=== PATIENT | male | born 1965 | race Caucasian/White ===

== ENCOUNTER 2019-04-11 22:52 | Emergency (ER) | payer SELFPAY ==
[~2019-04-11] VITALS: Ht 175.3 cm; Wt 77.1 kg
[2019-04-11 22:55] VITALS: BP 142/78
[2019-04-11] MEDS ORDERED: CEPHALEXIN500 M1 ORAL (22:59)
[2019-04-11 23:00] VITALS: BP 142/78
--- NOTE | 2019-04-11 23:00 | Emergency Room Report ---
History of Present Illness General Chief Complaint: Medical Clearance Source: Patient, Law [employer] Present Illness HPI 54-year-old male brought in by corrections, patient has no complaints, denies any fevers chills chest pain shortness of breath, he states he is good, he has no complaints and wants to leave. Allergies: Coded Allergies: No Known Allergies (Unverified , 04/11/19) Patient History Past Medical History: see triage record Reviewed Nursing Documentation: PMH: Agreed; PSxH: Agreed Nursing Documentation-PMH Past Medical History: No Stated History Review of Systems All Other Systems: negative except mentioned in HPI Physical Exam Vital Signs Date Time Temp Pulse Resp B/P (MAP) Pulse Ox O2 Delivery O2 Flow Rate FiO2 04/11/19 22:53 98.2 74 16 142/78 (99) 97 Room Air Sp02 EP Interpretation: reviewed, normal General Appearance: well appearing, no apparent distress, alert Head: normocephalic, atraumatic Eyes: bilateral eye PERRL, bilateral eye EOMI ENT: uvula midline, moist mucus membranes Neck: supple, thyroid normal, supple/symm/no masses Respiratory: lungs clear, no respiratory distress, no retraction, no accessory muscle use Cardiovascular #1: normal peripheral pulses, regular rate, rhythm, no edema, no gallop, no murmur Gastrointestinal: non tender, soft, no guarding, no rebound Musculoskeletal: normal inspection Neurologic: alert, oriented x3 Psychiatric: mood/affect normal Skin: warm/dry, other - Patient found to have sunburn blisters on his bilateral feet with ulceration no erythema Medical Decision Making Diagnostic Impression: Primary Impression: Blisters of multiple sites ER Course 54-year-old male found to have blisters on his bilateral feet, offered patient antibiotics, patient refused states he wants to leave, patient at this point has no acute medical emergencies, patient states he will follow-up with the present doctors, disposition to corrections Last Vital Signs Date Time Temp Pulse Resp B/P (MAP) Pulse Ox O2 Delivery O2 Flow Rate FiO2 04/11/19 22:53 98.2 74 16 142/78 (99) 97 Room Air Disposition: D/C TO [employer] IN [facility] Condition: Stable Scripts Cephalexin* (CEPHALEXIN*) 500 Mg Tablet 500 MG ORAL EVERY 6 HOURS for 10 Days, #40 CAP Prov: Lauri Coyne MD 04/11/19 Departure Forms: Longterm Clearance Patient Instructions: Blisters Additional Instructions: The patient was provided with discharge instructions, notified to follow-up with a primary care doctor and or specialist in the next 24-48 hours, and to return to the ED if they have worsening of their symptoms. Please note that this report is being documented using DRAGON technology. This can lead to erroneous entry secondary to incorrect interpretation by the dictating instrument. Lauri Coyne MD Apr 11, 2019 23:00
--- NOTE | 2019-04-11 23:00 | NUR ---
ED Nurse Note: Patient margarita [facility] for a medical clearance, at time of arrival patient complains of no pain however presents with markings and wounds on his foot, patient's socks is wet. states that he has been walking around for some time on his shoes. applied neosporin on patient's foot, will wait for further orders
[2019-04-11] MEDS ORDERED: Neosporin Oint Ud Pkt TOPIC ONE ×2 (23:03→23:30)
[2019-04-11 23:10] VITALS: BP 142/78
--- NOTE | 2019-04-11 23:10 | NUR ---
ER Nurse Note: Pt seen, treated, medically cleared for booking by ERMD. Discharge instuctions given with repeat verbalization by pt. All orders completed per ERMD orders. Pt a&ox4, VSS, stable. ID band removed.
--- NOTE | 2019-04-11 23:10 | NUR ---
ER DISCHARGE NOTE: Patient is cleared to be discharged per ERMD, pt is aox4, on room air, with stable vital signs. pt was given dc and prescription instructions, pt was able to verbalize understanding, pt id band removed without complications. pt is able to ambulate with steady gait. pt took all belongings.
[2019-04-11] MEDS: Neosporin Oint 15gm TOPIC ONE ×2 (23:15→23:19)
== END 2019-04-11 23:10 ==
LOC: EMR 23:01
DX: R23.8 Other skin changes (principal)
CPT/HCPCS: 99282